=== PATIENT | male | born 1990 | race Caucasian/White ===

== ENCOUNTER 2018-02-01 20:44 | Emergency (ER) | payer SELFPAY ==
[2018-02-01 20:46] VITALS: BP 125/111; PULSE 91; RESP 22; TEMP 36.6; O2SAT 100; BMI 18.1
[2018-02-01 21:22] LABS: Absolute Lymphocyte Count 2.68 X10^3/ul (0.83-4.51); Basophil# 0.05 X10^3/uL; Basophil% 0.6 % (0-1); Eosinophil# 0.03 X10^3/uL; Eosinophils% 0.4 % (0-5); Hematocrit 41.2 % (40-54); Hemoglobin 14.3 g/dl (13.0-16.5); Lymphocyte # 2.68 X10^3/ul (4.0); Mean Corp Hgb Conc 34.7 g/gl (32-36); Mean Corpuscular Hgb 30.4 pg (27.0-32.0); Mean Corpuscular Volume 87.5 fL (80-94); Mean Platelet Vol. 10.3 fl (6.2-12.0); Monocyte# 0.62 X10^3/uL; Monocyte% 7.4 % (0-10); Neutrophil # 4.98 X10^3/uL (2.7-7.7); Neutrophil % 59.4 % (47-70); Platelet Count 281 K/mm3 (150-450); RBC Distribution Width CV 12.8 % (11.6-14.6); RBC Distribution Width SD 41.3 fl (35.1-43.9); Red Blood Count 4.71 M/mm3 (4.6-6.2); White Blood Count 8.4 K/mm3 (4.4-11.0)
[2018-02-01 21:24] LABS: POSITIVE COUNT NO; POSITIVE DIFFERENTIAL NO; POSITIVE MORPHOLOGY NO
[2018-02-01 21:30] LABS: Anion Gap 8 (5-15); BUN 13 mg/dL (7-18); BUN/Creat Ratio 11.6 RATIO (10-20); Calcium,Total 9.4 mg/dL (8.5-10.1); Chloride 106 mmol/L (98-107); Creatinine, Serum 1.12 mg/dL (0.70-1.30); EST Glomerular Filtration Rate 84 mL/min (>60); Est Glom Filt Rate - Afr Amer 101 mL/min (>60); Estimated Creatinine Clearance 85.81 ml/min; Glucose 94 mg/dL (74-106); Potassium 3.8 mmol/L (3.5-5.1); Sodium Level 142 mmol/L (136-145)
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
[2018-02-01 21:37] LABS: Alcohol, Blood (Medical)-Serum < 3.0 mg/dL
[2018-02-01 21:37] LABS: Amphetamine Urine VISTA POSITIVE (<1000 ng/mL); Barbiturate Urine VISTA NEGATIVE (< 200 ng/mL); Benzodiazepine Urine VISTA NEGATIVE (< 200 ng/mL); Cocaine Urine VISTA POSITIVE (< 300 ng/mL); Ecstacy Urine VISTA POSITIVE (< 500 ng/mL); Methadone Urine VISTA NEGATIVE (< 300 ng/mL); PCP Urine VISTA NEGATIVE (< 25 ng/mL); THC Urine VISTA POSITIVE (< 50 ng/mL); Vista UDS pH Range 5
[2018-02-01 21:44] VITALS: RESP 16
[2018-02-01 22:00] VITALS: RESP 16
[2018-02-01 23:00] VITALS: BP 111/70; PULSE 76; RESP 16; O2SAT 96
[2018-02-02] VITALS (14 sets, daily range): BP systolic 96–117; BP diastolic 49–73; PULSE 50–64; RESP 14–20; O2SAT 97–99
--- NOTE | 2018-02-02 05:18 | EKG12_ITS ---
Test Reason : MENTAL HEALTH Blood Pressure : / mmHG Vent. Rate : 057 BPM Atrial Rate : 057 BPM P-R Int : 124 ms QRS Dur : 092 ms QT Int : 432 ms P-R-T Axes : 043 074 075 degrees QTc Int : 420 ms Sinus bradycardia Otherwise normal ECG Confirmed by FLAQUITA MARIE, SHEILA ([id number]), book or script editor BEATRIZ BRAVO ([id number]) on 02/04/2018 3:07:17 PM Referred By: NEY Confirmed By:SHEILA SAMS MD
[2018-02-02 05:40] LABS: AST(SGOT) 29 U/L (15-37); Alanine Aminotransfer ALT/SGPT 20 U/L (16-61); Albumin, Serum 4.1 g/dL (3.2-5.0); Alkaline Phosphatase 90 U/L (45-117); Bilirubin, Direct 0.24 mg/dL (0.00-0.30); Globulin 3.3 g/dL (2.2-4.2); Lipase 116 U/L (73-393); Protein, Total 7.4 g/dL (6.4-8.2)
--- NOTE | 2018-02-02 13:38 | ED.RN ---
JATINDER FROM [facility] CALLED WITH UNIT C2 FOR PT TO BE TRANSFERRED. CALL REPORT TO [phone].
== END 2018-02-02 14:19 ==
PROVIDERS: Emergency Medicine; Emergency Provider Emergency Medicine
DX: R45.851 Suicidal ideations (principal); F41.9 Anxiety disorder, unspecified; F32.9 Major depressive disorder, single episode, unspecified; Z59.0 Homelessness; Z91.14 Patient's other noncompliance with medication regimen; Z72.0 Tobacco use
CPT/HCPCS: 36415; 80048; 80076; 80307; 80320; 83690; 85025; 93005; 99285; G0480

== ENCOUNTER 2018-02-24 22:41 | Emergency (ER) | payer SELFPAY ==
[2018-02-24 22:43] VITALS: BP 126/79; PULSE 85; RESP 16; TEMP 36.8; O2SAT 97; BMI 29.6
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
[2018-02-24 23:46] VITALS: RESP 16
== END 2018-02-24 23:58 | disposition home or self-care (01) ==
LOC: ED 23:16
PROVIDERS: Emergency Provider Emergency Medicine
DX: S20.212A Contusion of left front wall of thorax, initial encounter (principal); Y04.2XXA Assault by strike against or bumped into by another person, initial encounter; Y93.9 Activity, unspecified; Y92.9 Unspecified place or not applicable; Y99.9 Unspecified external cause status; Z72.0 Tobacco use; F32.9 Major depressive disorder, single episode, unspecified
CPT/HCPCS: 71101; 99284

== ENCOUNTER 2018-05-05 13:35 | Emergency (ER) | payer MEDICAID, SELFPAY ==
--- NOTE | 2018-05-05 14:00 | DT_ITS ---
This patient was seen during an EMR downtime May 02, 2018 - May 09, 2018. This patient may have a combination of paper and electronic documentation or all paper documentation. All documentation is viewable within the e-chart portion of [facility] for each patient visit.
--- NOTE | 2018-05-05 14:45 | RAD_ITS ---
STUDY: X-RAY - RIGHT HAND REASON FOR EXAM: Fifth metacarpal pain, injury. TECHNIQUE: 3 view(s) of the hand. COMPARISON: Radiographs 11/15/2015. FINDINGS: Normal radiocarpal articulation. Normal distal radioulnar joint. Normal visualized carpal bones. Normal carpal articulations Normal carpometacarpal articulation of the thumb. Normal second through fifth carpometacarpal joints. There is chronic healed fracture deformity of the fifth metacarpal neck, unchanged since the prior study. Normal metacarpophalangeal joint of the thumb. Normal interphalangeal joint of the thumb. Normal proximal and distal phalanges of the thumb. Normal metacarpophalangeal joints of the second through fifth fingers. Normal proximal and distal interphalangeal joints of the second through fifth fingers. Normal phalanges of the second through fifth fingers. The soft tissue structures are unremarkable. RAD/Hand Min 3 Views IMPRESSION: Chronic healed fracture deformity of the fifth metacarpal neck. Otherwise, unremarkable x-ray examination of the right hand. Electronically Signed: Flaco Dawson MD at 12:02 EDT Tel , Service support ,
== END 2018-05-05 15:43 | disposition home or self-care (01) ==
LOC: ED 05-06 09:31
PROVIDERS: Emergency Provider Emergency Medicine
DX: S69.91XA Unspecified injury of right wrist, hand and finger(s), initial encounter (principal); W23.0XXA Caught, crushed, jammed, or pinched between moving objects, initial encounter; Y93.9 Activity, unspecified; Y92.9 Unspecified place or not applicable; F32.9 Major depressive disorder, single episode, unspecified; F41.9 Anxiety disorder, unspecified; Z79.899 Other long term (current) drug therapy
CPT/HCPCS: 73130; 99283

== ENCOUNTER 2018-06-01 11:53 | Inpatient (IN) | payer MEDICAID, SELFPAY ==
[2018-06-01] VITALS (17 sets, daily range): BP systolic 90–137; BP diastolic 53–107; PULSE 55–105; RESP 12–28; TEMP 36.5–36.9; O2SAT 96–100; BMI 17.6; BMI 18.3; BMI 18.4
[2018-06-01] MEDS: LORazepam 2 MG/ML Syringe 1 MG IV (12:22)
[2018-06-01 12:31] LABS: Anion Gap 8 (5-15); BUN 20 mg/dL (7-18); BUN/Creat Ratio 17.2 RATIO (10-20); Calcium,Total 8.5 mg/dL (8.5-10.1); Chloride 108 mmol/L (98-107); Creatinine, Serum 1.16 mg/dL (0.70-1.30); EST Glomerular Filtration Rate 80 mL/min (>60); Est Glom Filt Rate - Afr Amer 97 mL/min (>60); Estimated Creatinine Clearance 79.78 ml/min; Glucose 83 mg/dL (74-106); Potassium 3.9 mmol/L (3.5-5.1); Sodium Level 140 mmol/L (136-145)
[2018-06-01 12:32] LABS: Absolute Lymphocyte Count 1.22 X10^3/ul (0.83-4.51); Absolute Neutrophil Count 9.7 X10^3/uL (2.0-7.7); Basophil# 0.03 X10^3/uL; Basophil% 0.2 % (0-1); Differential Indicated SCAN CRITERIA MET; Eosinophil# 0.01 X10^3/uL; Eosinophils% 0.1 % (0-5); Hematocrit 38.9 % (40-54); Hemoglobin 13.3 g/dl (13.0-16.5); Lymphocyte # 1.22 X10^3/ul (4.0); Lymphocyte % 9.8 % (19-41); Mean Corp Hgb Conc 34.2 g/gl (32-36); Mean Corpuscular Hgb 29.8 pg (27.0-32.0); Mean Corpuscular Volume 87.2 fL (80-94); Mean Platelet Vol. 9.6 fl (6.2-12.0); Monocyte# 1.54 X10^3/uL; Monocyte% 12.3 % (0-10); Neutrophil # 9.67 X10^3/uL (2.7-7.7); Neutrophil % 77.3 % (47-70); POSITIVE COUNT NO; POSITIVE DIFFERENTIAL YES; POSITIVE MORPHOLOGY NO; Platelet Count 267 K/mm3 (150-450); RBC Distribution Width CV 12.6 % (11.6-14.6); RBC Distribution Width SD 40.4 fl (35.1-43.9); Red Blood Count 4.46 M/mm3 (4.6-6.2); White Blood Count 12.5 K/mm3 (4.4-11.0)
[2018-06-01 12:38] LABS: Alcohol, Blood (Medical)-Serum < 3.0 mg/dL
[2018-06-01 13:14] LABS: Amphetamine Urine VISTA POSITIVE (<1000 ng/mL); Barbiturate Urine VISTA NEGATIVE (< 200 ng/mL); Benzodiazepine Urine VISTA NEGATIVE (< 200 ng/mL); Cocaine Urine VISTA NEGATIVE (< 300 ng/mL); Ecstacy Urine VISTA POSITIVE (< 500 ng/mL); Methadone Urine VISTA NEGATIVE (< 300 ng/mL); PCP Urine VISTA NEGATIVE (< 25 ng/mL); THC Urine VISTA POSITIVE (< 50 ng/mL); Vista UDS pH Range 5
--- NOTE | 2018-06-01 13:25 | RAD_ITS ---
STUDY: X-RAY CHEST REASON FOR EXAM: Male, 28 years old. Exhaustion. Chest pain. TECHNIQUE: Single AP portable view of the chest. COMPARISON: 02/24/2018. FINDINGS: The lungs are clear and expanded. There is no demonstrated pleural abnormality. Normal size heart. Normal mediastinum and denis. Normal visualized pulmonary arteries. Normal visualized aortic arch and descending thoracic aorta. Normal visualized thoracic spine. Normal visualized ribs, clavicles, and shoulders. There is no demonstrated abnormality of the visualized soft tissue structures of the upper abdomen. RAD/Chest 1 View (Portable) IMPRESSION: Normal x-ray examination of the chest. Electronically Signed: Yeyo Montana MD at 14:33 EDT , Service support ,
--- NOTE | 2018-06-01 14:49 | ED.DCSUM_ITS ---
- ER Visit Summary Date of Service: 06/01/18 Chief Complaint: [Hand contraction, fatigue, rib pain] History of Present Illness: The patient is a 28 M [presents to the emergency department via EMS. Patient apparently was walking from [place] to [facility]. Patient had stopped hydrated by drinking some water and then apparently developed numbness and tingling started in his legs and went through his entire body. Patient had a hard time standing up very late in the grass. Patient was feeling dehydrated. Patient states she has not been drinking alcohol today but did drink last night. Patient denies any illicit drug use currently other than marijuana occasionally. Patient states he used to use methamphetamines but has not used in over 6 months. Patient complains of right hand being painful and contracted in flexion. Patient denies recent illness. Patient denies fall or head injury. Patient states that he does have an injury to his left ribs and he complains of pain to that left chest.] Physical Examination: [HEENT-PERRLA, EOMI. Cranial nerves II through XII grossly intact. TMs clear. Mucous membranes moist. No adenopathy. Patient has some abnormal movements of his mouth with lip and tongue smacking. Cardiovascular-regular rate and rhythm without murmur or ectopy Lungs-clear to auscultation, chest wall stable without crepitus or subcu emphysema Abdomen-normoactive bowel sounds, soft, nontender, no rebound or rigidity, no peritoneal signs. Extremities-intact ?4, normal range of motion, normal pulses, atraumatic]. Right hand is held in flexion and his digits are held flexed. No external evidence of trauma. Neurovascularly intact. Test Results: [CBC with differential obtained showed a white blood cell count of 12.5, hemoglobin 13, hematocrit 39, platelets 267. Chemistries unremarkable. BUN was 20 and creatinine was 1.16. Alcohol was less than 3. Toxicology screen was positive for MDMA, amphetamines, and marijuana. Chest x- ray obtained showed nothing acute.] Emergency Department Course and Treatment: [Given patient history of anxiety initially patient was given a milligram of Ativan which did make patient somnolent. Patient still arouses but more difficult to arouse. Patient continues to complain of discomfort in his hand. Patient's speech still at times difficult to understand and he continues the lipsmacking and have abnormal movements.] Treatment Plan: [At this point patient will be admitted for observation I suspect likely etiology of his mental status change and abnormal movements likely illicit drug use.] Disposition: [Admit Impression: [Illicit drug use Mental status change Anxiety by history] This note was generated with [employer] dictation software. It may contain incorrect words, spelling, and punctuation that were not noted in review of the chart prior to signing ED Disposition - Plan for ED Patient: Chief Complaint: Fatigue Referrals: Care Physician,No Primary [Primary Care Provider] -
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
--- NOTE | 2018-06-01 16:20 | NURSING ---
In ICU 8 per cart from ER, SERVICE DESK LEAD in attendance
--- NOTE | 2018-06-01 16:25 | EKG12_ITS ---
Test Reason : ADMISSION Blood Pressure : / mmHG Vent. Rate : 059 BPM Atrial Rate : 059 BPM P-R Int : 134 ms QRS Dur : 092 ms QT Int : 424 ms P-R-T Axes : 052 077 075 degrees QTc Int : 419 ms Sinus bradycardia Otherwise normal ECG When compared with ECG of 02-FEB-2018 05:18, No significant change was found Confirmed by FLAQUITA MARIE, SHEILA ([id number]), editorial cartoonist BEATRIZ BRAVO ([id number]) on 06/07/2018 1:10:24 PM Referred By: PINA Confirmed By:SHEILA SAMS MD
--- NOTE | 2018-06-01 16:25 | CT_ITS ---
STUDY: CT BRAIN WITHOUT CONTRAST REASON FOR EXAM: Male, 28 years old. Altered mental status. Drug abuse. RADIATION DOSAGE (If Supplied By Facility): CTDIvol = ( 44.99 ) mGy, DLP = ( 846.73 ) mGycm TECHNIQUE: Transaxial CT imaging of the brain was performed without administration of intravenous contrast material. Individualized dose optimization techniques were used for this CT. COMPARISON: 11/15/2015. FINDINGS: Normal soft tissue structures. Normal calvarium. Normal size ventricles and extra-axial spaces for the patient's age. Normal white matter tracts of the cerebral hemispheres. Normal basal ganglia and thalami. Normal brainstem. Normal cerebellum. There is no intracranial hemorrhage. There are no findings of an acute ischemic infarction. Normal visualized paranasal sinuses. CT/Brain/Head without Contrast IMPRESSION: Normal unenhanced CT scan of the brain. Electronically Signed: Yeyo Montana MD at 18:52 EDT , Service support ,
[2018-06-01 17:22] LABS: AST(SGOT) 28 U/L (15-37); Alanine Aminotransfer ALT/SGPT 20 U/L (16-61); Albumin, Serum 3.9 g/dL (3.2-5.0); Alkaline Phosphatase 85 U/L (45-117); Bilirubin, Direct 0.33 mg/dL (0.00-0.30); Protein, Total 6.9 g/dL (6.4-8.2)
[2018-06-01 17:28] LABS: CPK Total, Creatine Kinase 255 U/L (39-308)
[2018-06-01] MEDS: Dextrose 5%/0.9% NaCl 1,000 ML 100 ML IV (17:40)
[2018-06-01 22:07] LABS: M R Staph aureus DNA By PCR Negative (Negative)
[2018-06-01 22:08] LABS: Probe Check PASS; Specimen Processing Control PASS
[2018-06-02] VITALS (18 sets, daily range): BP systolic 84–104; BP diastolic 49–74; PULSE 50–64; RESP 14–20; TEMP 36.5–37.1; O2SAT 99–100
[2018-06-02] MEDS: Dextrose 5%/0.9% NaCl 1,000 ML 100 ML IV ×3 (03:17→23:41)
[2018-06-02 04:19] LABS: Absolute Lymphocyte Count 1.77 X10^3/ul (0.83-4.51); Absolute Neutrophil Count 3.4 X10^3/uL (2.0-7.7); Basophil# 0.04 X10^3/uL; Basophil% 0.7 % (0-1); Eosinophil# 0.09 X10^3/uL; Eosinophils% 1.5 % (0-5); Hematocrit 37.8 % (40-54); Hemoglobin 12.9 g/dl (13.0-16.5); Lymphocyte # 1.77 X10^3/ul (4.0); Lymphocyte % 28.8 % (19-41); Mean Corp Hgb Conc 34.1 g/gl (32-36); Mean Corpuscular Hgb 30.4 pg (27.0-32.0); Mean Corpuscular Volume 88.9 fL (80-94); Mean Platelet Vol. 9.9 fl (6.2-12.0); Monocyte# 0.88 X10^3/uL; Monocyte% 14.3 % (0-10); Neutrophil # 3.35 X10^3/uL (2.7-7.7); Neutrophil % 54.5 % (47-70); Platelet Count 231 K/mm3 (150-450); RBC Distribution Width CV 12.8 % (11.6-14.6); RBC Distribution Width SD 41.1 fl (35.1-43.9); Red Blood Count 4.25 M/mm3 (4.6-6.2); White Blood Count 6.1 K/mm3 (4.4-11.0)
[2018-06-02 04:21] LABS: POSITIVE COUNT NO; POSITIVE DIFFERENTIAL NO; POSITIVE MORPHOLOGY NO
[2018-06-02 04:35] LABS: Anion Gap 8 (5-15); BUN 14 mg/dL (7-18); Calcium,Total 8.1 mg/dL (8.5-10.1); Chloride 111 mmol/L (98-107); Creatinine, Serum 0.74 mg/dL (0.70-1.30); EST Glomerular Filtration Rate 136 mL/min (>60); Est Glom Filt Rate - Afr Amer 164 mL/min (>60); Estimated Creatinine Clearance 130.65 ml/min; Glucose 103 mg/dL (74-106); Potassium 3.9 mmol/L (3.5-5.1); Sodium Level 143 mmol/L (136-145)
[2018-06-02] MEDS: Enoxaparin 40 MG/0.4 ML Syringe SC (05:04)
[2018-06-02] MEDS: 0.9% NaCl Peripheral Flush Adult/Peds IV (05:04)
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
--- NOTE | 2018-06-02 10:12 | CASEMGMT ---
Addendum entered by Irene Alegria 06/02/18 15:06: SW spoke w/RN in ICU, pt has been sleeping intermittently throughout the day, is sleeping at present. SW asked RN to call this SW should pt wake up enough to have a conversation w/this SW. Otherwise, SW will follow up w/this pt tomorrow. JEANNINE Farley, JACINDA Original Note: SW participated in ICU rounds this morning. Pt sleeping and not waking easily this morning. SW asked RN to call this SW if pt wakes more during the day, and SW will return to see pt. SW also left a message for Sarita in the financial dept letting her know pt is too sleepy to speak w/her just yet, and SW will let her know should pt be more awake this afternoon. SW will continue to follow. JEANNINE Farley, JACINDA
[2018-06-03 03:19] VITALS: BP 97/57; PULSE 52; RESP 18; TEMP 36.8; O2SAT 99
[2018-06-03] MEDS: Enoxaparin 40 MG/0.4 ML Syringe SC (05:38)
[2018-06-03 07:42] LABS: Absolute Lymphocyte Count 1.97 X10^3/ul (0.83-4.51); Absolute Neutrophil Count 3.1 X10^3/uL (2.0-7.7); Basophil# 0.04 X10^3/uL; Basophil% 0.7 % (0-1); Eosinophil# 0.14 X10^3/uL; Eosinophils% 2.3 % (0-5); Hematocrit 37.5 % (40-54); Lymphocyte # 1.97 X10^3/ul (4.0); Lymphocyte % 32.7 % (19-41); Mean Corp Hgb Conc 34.7 g/gl (32-36); Mean Corpuscular Hgb 30.5 pg (27.0-32.0); Mean Platelet Vol. 10.1 fl (6.2-12.0); Monocyte# 0.73 X10^3/uL; Monocyte% 12.1 % (0-10); Neutrophil # 3.14 X10^3/uL (2.7-7.7); POSITIVE COUNT NO; POSITIVE DIFFERENTIAL NO; POSITIVE MORPHOLOGY NO; Platelet Count 214 K/mm3 (150-450); RBC Distribution Width CV 12.5 % (11.6-14.6); RBC Distribution Width SD 39.8 fl (35.1-43.9); Red Blood Count 4.26 M/mm3 (4.6-6.2)
[2018-06-03 07:58] LABS: Anion Gap 6 (5-15); BUN 8 mg/dL (7-18); BUN/Creat Ratio 11.9 RATIO (10-20); Calcium,Total 7.9 mg/dL (8.5-10.1); Chloride 112 mmol/L (98-107); Creatinine, Serum 0.67 mg/dL (0.70-1.30); EST Glomerular Filtration Rate 151 mL/min (>60); Est Glom Filt Rate - Afr Amer 182 mL/min (>60); Estimated Creatinine Clearance 148.98 ml/min; Glucose 100 mg/dL (74-106); Potassium 3.7 mmol/L (3.5-5.1); Sodium Level 142 mmol/L (136-145)
[2018-06-03 09:50] VITALS: BP 106/64; PULSE 58; RESP 16; TEMP 36.4; O2SAT 97
[2018-06-03] MEDS: Dextrose 5%/0.9% NaCl 1,000 ML 100 ML IV (09:50)
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
--- NOTE | 2018-06-03 10:24 | PCM.DC ---
- Discharge Diagnoses Current Active Problems: Current Active and Chronic Problems Multiple drug overdose (Acute) Acute encephalopathy (Acute) Anxiety (Chronic) Depression (Chronic) You will use the following diet at home:: No restrictions Your food should be the consistency of: Regular Your liquids should be the consistency of: Regular/Thin Discharge Activity: Return to Normal Activity May resume sexual activity in: No Restrictions Weight Bearing Status: Weight bearing as tolerated Instructions: Signs of Marijuana Addiction, Addiction: Getting Help, Recovering from Addiction Additional Instructions: Please follow up with your psychiatrist; and please access resources for chemical dependency (caseworker to give material for resources available.) Allergies/Adverse Reactions: Allergies No Known Allergies Allergy (Verified 06/01/18 11:54) Primary Care Physician: Care Physician,No Primary [Primary Care Provider] - Sara Gallegos MD [STAFF PHYSICIAN] - Please follow up with your Primary Care Physician in: two weeks Test Results: Test results from this visit will be discussed in further detail at your follow-up appointment, if applicable. Proposed Discharge Date: 06/03/18
--- NOTE | 2018-06-03 10:29 | DCINST_ITS ---
- Discharge Diagnoses Current Active Problems: Current Active and Chronic Problems Multiple drug overdose (Acute) Acute encephalopathy (Acute) Anxiety (Chronic) Depression (Chronic) You will use the following diet at home:: No restrictions Your food should be the consistency of: Regular Your liquids should be the consistency of: Regular/Thin Discharge Activity: Return to Normal Activity May resume sexual activity in: No Restrictions Weight Bearing Status: Weight bearing as tolerated Instructions: Signs of Marijuana Addiction, Addiction: Getting Help, Recovering from Addiction Additional Instructions: Please follow up with your psychiatrist; and please access resources for chemical dependency (farm[employer] to give material for resources available.) Allergies/Adverse Reactions: Allergies No Known Allergies Allergy (Verified 06/01/18 11:54) Primary Care Physician: Care Physician,No Primary [Primary Care Provider] - Sara Gallegos MD [STAFF PHYSICIAN] - Please follow up with your Primary Care Physician in: two weeks Test Results: Test results from this visit will be discussed in further detail at your follow- up appointment, if applicable. Proposed Discharge Date: 06/03/18
--- NOTE | 2018-06-03 10:29 | PCM.DC.SUM ---
Discharge Date and Diagnosis Date of Admission: 06/01/18 Date of Discharge: 06/03/18 - Primary Discharge Diagnosis Active and Suspected Problems Multiple drug overdose (Acute) Acute encephalopathy (Acute) - Secondary Discharge Diagnosis Chronic Problems Anxiety (Chronic) Depression (Chronic) Hospital Course and Treatment Imaging Results: Diagnostic Data Chest X-Ray 06/01/18 13:25 IMPRESSION: Normal x-ray examination of the chest. Electronically Signed: Yeyo Montana MD at 14:33 EDT , Service support , Brain CT 06/01/18 16:25 IMPRESSION: Normal unenhanced CT scan of the brain. Electronically Signed: Yeyo Montana MD at 18:52 EDT , Service support , Laboratory Tests 06/01/18 06/01/18 06/01/18 12:07 12:07 12:07 WBC 12.5 H RBC 4.46 L Hgb 13.3 Hct 38.9 L MCV 87.2 MCH 29.8 MCHC 34.2 RDW 12.6 RDW Differential 40.4 Plt Count 267 MPV 9.6 Immature Gran % (Auto) 0.300 Neut % (Auto) 77.3 H Lymph % (Auto) 9.8 L [place] % (Auto) 12.3 H Eos % (Auto) 0.1 Baso % (Auto) 0.2 Absolute Neuts (auto) 9.7 H Absolute Lymphs (auto) 1.22 Total Counted Not Reportable Sodium 140 Potassium 3.9 Chloride 108 H Carbon Dioxide 24.0 Anion Gap 8 BUN 20 H Creatinine 1.16 Estim Creat Clear Calc 79.78 Est GFR (MDRD) Af Amer 97 Est GFR (MDRD) Non-Af 80 BUN/Creatinine Ratio 17.2 Glucose 83 Calcium 8.5 Total Bilirubin Direct Bilirubin AST ALT Alkaline Phosphatase Total Creatine Kinase Total Protein Albumin Globulin Urine Opiates Screen Urine Methadone Screen Ur Barbiturates Screen Ur Phencyclidine Scrn Ur Amphetamines Screen U Methamphetamin-MDMA U Benzodiazepines Scrn Urine Cocaine Screen U Cannabinoids Screen Ur Drug Screen Comment Ethyl Alcohol < 3.0 MRSA (PCR) 06/01/18 06/01/18 06/01/18 12:07 12:55 16:25 WBC RBC Hgb Hct MCV MCH MCHC RDW RDW Differential Plt Count MPV Immature Gran % (Auto) Neut % (Auto) Lymph % (Auto) [place] % (Auto) Eos % (Auto) Baso % (Auto) Absolute Neuts (auto) Absolute Lymphs (auto) Total Counted Sodium Potassium Chloride Carbon Dioxide Anion Gap BUN Creatinine Estim Creat Clear Calc Est GFR (MDRD) Af Amer Est GFR (MDRD) Non-Af BUN/Creatinine Ratio Glucose Calcium Total Bilirubin 2.60 H Direct Bilirubin 0.33 H AST 28 ALT 20 Alkaline Phosphatase 85 Total Creatine Kinase 255 Total Protein 6.9 Albumin 3.9 Globulin 3.0 Urine Opiates Screen NEGATIVE Urine Methadone Screen NEGATIVE Ur Barbiturates Screen NEGATIVE Ur Phencyclidine Scrn NEGATIVE Ur Amphetamines Screen POSITIVE H U Methamphetamin-MDMA POSITIVE H U Benzodiazepines Scrn NEGATIVE Urine Cocaine Screen NEGATIVE U Cannabinoids Screen POSITIVE H Ur Drug Screen Comment Ethyl Alcohol MRSA (PCR) 06/01/18 06/02/18 06/02/18 20:00 04:05 04:05 WBC 6.1 RBC 4.25 L Hgb 12.9 L Hct 37.8 L MCV 88.9 MCH 30.4 MCHC 34.1 RDW 12.8 RDW Differential 41.1 Plt Count 231 MPV 9.9 Immature Gran % (Auto) 0.200 Neut % (Auto) 54.5 Lymph % (Auto) 28.8 [place] % (Auto) 14.3 H Eos % (Auto) 1.5 Baso % (Auto) 0.7 Absolute Neuts (auto) 3.4 Absolute Lymphs (auto) 1.77 Total Counted Not Reportable Sodium 143 Potassium 3.9 Chloride 111 H Carbon Dioxide 24.0 Anion Gap 8 BUN 14 Creatinine 0.74 Estim Creat Clear Calc 130.65 Est GFR (MDRD) Af Amer 164 Est GFR (MDRD) Non-Af 136 BUN/Creatinine Ratio 19.0 Glucose 103 Calcium 8.1 L Total Bilirubin Direct Bilirubin AST ALT Alkaline Phosphatase Total Creatine Kinase Total Protein Albumin Globulin Urine Opiates Screen Urine Methadone Screen Ur Barbiturates Screen Ur Phencyclidine Scrn Ur Amphetamines Screen U Methamphetamin-MDMA U Benzodiazepines Scrn Urine Cocaine Screen U Cannabinoids Screen Ur Drug Screen Comment Ethyl Alcohol MRSA (PCR) Negative 06/03/18 06/03/18 07:20 07:20 WBC 6.0 RBC 4.26 L Hgb 13.0 Hct 37.5 L MCV 88.0 MCH 30.5 MCHC 34.7 RDW 12.5 RDW Differential 39.8 Plt Count 214 MPV 10.1 Immature Gran % (Auto) 0.200 Neut % (Auto) 52.0 Lymph % (Auto) 32.7 [place] % (Auto) 12.1 H Eos % (Auto) 2.3 Baso % (Auto) 0.7 Absolute Neuts (auto) 3.1 Absolute Lymphs (auto) 1.97 Total Counted Not Reportable Sodium 142 Potassium 3.7 Chloride 112 H Carbon Dioxide 24.0 Anion Gap 6 BUN 8 Creatinine 0.67 L Estim Creat Clear Calc 148.98 Est GFR (MDRD) Af Amer 182 Est GFR (MDRD) Non-Af 151 BUN/Creatinine Ratio 11.9 Glucose 100 Calcium 7.9 L Total Bilirubin Direct Bilirubin AST ALT Alkaline Phosphatase Total Creatine Kinase Total Protein Albumin Globulin Urine Opiates Screen Urine Methadone Screen Ur Barbiturates Screen Ur Phencyclidine Scrn Ur Amphetamines Screen U Methamphetamin-MDMA U Benzodiazepines Scrn Urine Cocaine Screen U Cannabinoids Screen Ur Drug Screen Comment Ethyl Alcohol MRSA (PCR) Operations: None Procedures: None Summary of Care Provided: Patient is a 28-year-old male with a history of chemical dependency was admitted via the ED after he was brought in by ambulance. According to patient and he had been walking for a long time and said he had not been drinking enough water and sitting to became dehydrated with assisted numbness and tingling in his legs and subsequently through his entire body. He was found very dehydrated and denied use of any other recreational drugs recently apart from marijuana. He had a history of meth use but said he had been clean for about 6 months. Urine screen was positive for amphetamines, methamphetamines and cannabinoids and blood alcohol level was less than 3. He was admitted and managed for acute encephalopathy likely metabolic and multiple drug overdose. He was admitted to the ICU and hydrated with IV fluids. He remained stable and was transferred out of the ICU on 06/02/2018. Home medications reviewed and reconciled. Patient was discharged home on 06/03/2018 to follow-up with primary care doctor and a psychiatrist. He was also given materials for community resources available for chemical dependency. Discharge Activity: Return to Normal Activity May resume sexual activity in: No Restrictions Weight Bearing Status: Weight bearing as tolerated Primary Care Physician: Sara Galleogs MD [STAFF PHYSICIAN] - Care Physician,No Primary [Primary Care Provider] - Please follow up with your Primary Care Physician in: two weeks Patient Instructions: Signs of Marijuana Addiction, Addiction: Getting Help, Recovering from Addiction Disposition: Home Minutes spent on discharge:: 35 Patient Condition:: Good Medical Necessity - Tobacco Use Smoking Status: Current every day smoker Meaningful Use Info Meaningful Use Diagnoses (Choose all that apply): None applicable Code Visit Inpatient E&M: 79959 Disch Hosp
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
== END 2018-06-03 11:16 | disposition home or self-care (01) | DRG 449 ==
LOC: ED 13:00 → MS3 15:13 → ICU 15:43 → MS3 06-02 17:16
PROVIDERS: Admitting Provider Hospitalist; Emergency Provider Emergency Medicine; Visit Provider Student in an Organized Health Care Education/Training Program
DX: T43.621A Poisoning by amphetamines, accidental (unintentional), initial encounter (principal); G92 Toxic encephalopathy; E86.0 Dehydration; T40.7X1A Poisoning by cannabis (derivatives), accidental (unintentional), initial encounter; F41.9 Anxiety disorder, unspecified; F32.9 Major depressive disorder, single episode, unspecified
CPT/HCPCS: 36415; 70450; 71045; 80048; 80076; 80307; 80320; 82550; 85025; 87641; 93005; 97162; 97530; 99285; 99406; J7030; A4216; G0480; J3490

== ENCOUNTER 2021-04-03 17:18 | Emergency (ER) | payer SELFPAY ==
[2021-04-03 17:19] VITALS: BP 147/89; PULSE 57; RESP 14; TEMP 36.1; O2SAT 99; BMI 19.0
--- NOTE | 2021-04-03 17:23 | RAD_ITS ---
STUDY: X-RAY - LEFT SHOULDER REASON FOR EXAM: Male, 31 years old. INJURY/pain TECHNIQUE: 4 view(s) of the shoulder. COMPARISON: None. FINDINGS: Normal glenohumeral articulation. Normal acromioclavicular joint. Normal acromion. Normal humeral head and visualized proximal humerus. The soft tissue structures are unremarkable. Normal visualized pulmonary apex. RAD/Shoulder min 2 Views IMPRESSION: Normal x-ray examination of the shoulder. Electronically Signed: Kristal Mccain MD at 17:49 EDT , Service support ,
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
[2021-04-03 18:44] VITALS: BP 129/69; PULSE 52; RESP 16; O2SAT 99
[2021-04-03] MEDS: HYDROcodone Bitartrate/Apap 5/325 Tablet PO (18:48)
== END 2021-04-03 18:54 | disposition home or self-care (01) ==
LOC: ED 18:22
PROVIDERS: Emergency Provider Emergency Medicine
DX: S43.402A Unspecified sprain of left shoulder joint, initial encounter (principal); F17.200 Nicotine dependence, unspecified, uncomplicated; Y93.55 Activity, bike riding; V19.9XXA Pedal cyclist (driver) (passenger) injured in unspecified traffic accident, initial encounter
CPT/HCPCS: 73030; 99285

== ENCOUNTER 2022-02-08 18:47 | Emergency (ER) | payer SELFPAY ==
[2022-02-08 18:48] VITALS: BP 151/87; PULSE 67; RESP 14; TEMP 36.8; O2SAT 96; BMI 20.9
--- NOTE | 2022-02-08 19:05 | ED.VIS.LOWEX ---
HPI History of Present Illness Chief Complaint: Lower Extremity Injury Informant: patient Onset/Context/Timing Onset: Weeks (1) Context: Sudden Onset Timing: Continuous Quality of Pain: - (sore) Location: Left great toe Current Severity: Mild Maximum Severity: Moderate Worsened by: Tried to pull nail off and palpation Relieved by: Leaving alone Associated Symptoms Associated Symptoms: Negative for Parasthesia, Weakness and Loss of Funtion Narrative Narrative: Patient states he was skateboarding a week ago and trying a new move and in doing so, the skateboard edge came down right onto his left great toe. Shoe was on at that time, but he sustained nail injury. There was temporary bleeding. Since then he did waiting for the nail to fall off but it has not, he is afraid he is going to catch it on something, so he was trying to pull it off and it was too painful for him to do so he presents wanting this done for him. PFSH PFSH Allergy/AdvReac Type Severity Reaction Status Date / Time No Known Allergies Allergy Verified 02/08/22 18:48 Social History Smoking Status: Current every day smoker tobacco type: cigarettes ROS ROS ED Constitutional Constitutional ED: Denies chills or fever(s) Musculoskeletal Musculoskeletal: Reports extremity pain; Denies neck pain Integumentary Reports wounds; Denies Abrasions or rash Neurologic Neurologic: Denies paresthesias or weakness EXAM Physical Exam Const Vital Signs: 02/08/22 18:48 Temperature 98.2 F Temperature Source Temporal Pulse Rate 67 Respiratory Rate 14 Blood Pressure 151/87 H Blood Pressure Mean 108 Pulse Ox 96 Oxygen Delivery Method Room Air Positive well nourished and well developed General Appearance ED: well developed and NAD Neck full ROM and supple Back/Spine normal ROM and normal to inspection Extremity Extremity Narrative: Tenderness distal phalanx left great toe, where there is a nail injury with incomplete avulsion of the nail from the root and the bed. No deformities. Neuro oriented x3, no focal motor deficits and no sensory deficits noted Sensorium / Orientation: alert Psych mental status grossly normal and thought process normal Skin Skin Narrative: Minor bleeding from the root or beneath the left great toenail. Toenail is intact although mostly avulsed from the root, so nail bed not visible or able to be evaluated until nail was removed see the procedure note. No other wounds. Rashes: no rashes MDM MDM MDM Narrative Medical decision making narrative: X-ray of the toe was obtained shows no fractures on my interpretation, 2 views. Radiology in agreement. Patient verbally consented to have his nail removed after digital block which was performed without complication see the procedure note. On inspection of the nailbed, there does appear to be a small longitudinal laceration that emanates from the nail fold, however it appears to be already starting to heal with clot/granulation tissue, since it is a week old. I do not think placing sutures across this will be of benefit, the edges are staying together and they are on an equal plane. He is advised to follow-up with podiatry for reevaluation, and if he cannot get in within the next couple days, to change the dressing at least once daily. The nail was placed within the nail fold in order to stent it open and increase chances for nail regrowth. Radiography Diagnostic Testing: Clinical Impression(s) from Imaging Studies Toe X-Ray 02/08/22 19:10 IMPRESSION: No acute bony abnormality. at 2036 Reported and signed by: Eren Goodson MD Electronically Signed: Eren Goodson MD at 20:35 EDT Reading Location ID and State: [address] [place] [address] Tel , Service support , Procedures Other Procedures Procedure(s): Left great toe digital block: 8 cc total of plain 1% lidocaine used as a ring block from dorsal approach after prep with isopropyl. Excellent anesthesia obtained, no complications and tolerated well. Removal left great toenail: After digital block, bluntly used the non-sharp edge of scissors to dissect the nail away from what was left of its attachment to the nailbed. This was performed without complication or injury to the nailbed, and the nail was removed in its entirety, and it was confirmed that it had already been completely avulsed from the nail fold/root. The nailbed was inspected, there does appear to be a longitudinal 1 cm partial-thickness laceration but there is already healing tissue within it, and slightly disrupting it caused minor bleeding that was easily controllable with pressure. This was cleansed thoroughly, and I cleaned the removed nail, replacing it within the nail fold with a large amount of bacitracin ointment and followed by a bulky dressing. Patient tolerated well without any pain, no complications. Discharge Plan Triage Chief Complaint: Lower Extremity Injury ED Provider: Trever Quintero Dx/Rx/DC Orders Clinical Impression: Traumatic avulsion of nail plate of toe, Laceration of nail bed of toe Instructions: ED Detached Fingernail or Toenail Primary Care Provider: Care Physician,No Primary Referrals: Chuck Ornelas DPM [STAFF PHYSICIAN] - As soon as possible (call for appt) Care Physician,No Primary [Primary Care Provider] - Activity Restrictions/Additional Instructions: If it takes you more than a couple days to get into see podiatry, change the dressing once daily, trying to leave the nail intact within the nail fold. It is okay to place more antibiotic ointment on top of the nail in/by the fold/cuticle if needed before placing more gauze on it. If needed for pain, ice to affected area on top of dressing, and ibuprofen 600 mg orally up to every 8 hours. Disposition Disposition: Home, Self Care
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
[2022-02-08] MEDS: Lidocaine 1% (20 ml mdv) 20 ML Vial INFILT (19:13)
[2022-02-08 23:43] VITALS: PULSE 66; RESP 18; O2SAT 99
== END 2022-02-08 23:46 | disposition home or self-care (01) ==
PROVIDERS: Emergency Provider Emergency Medicine; Visit Provider Emergency Medicine
DX: S91.212D Laceration without foreign body of left great toe with damage to nail, subsequent encounter (principal); V00.131D Fall from skateboard, subsequent encounter; F17.210 Nicotine dependence, cigarettes, uncomplicated
CPT/HCPCS: 11750; 73660; 99282

== ENCOUNTER 2023-03-17 17:27 | Emergency (ER) | payer MEDICAID, SELFPAY ==
[2023-03-17 17:28] VITALS: BP 134/95; PULSE 77; RESP 18; TEMP 36.6; O2SAT 98; BMI 18.7
[2023-03-17 17:54] LABS: Absolute Lymphocyte Count 1.87 X10^3/uL (0.83-4.51); Absolute Neutrophil Count 4.8 X10^3/uL (2.0-7.7); Basophil# 0.08 X10^3/uL; Basophil% 1.1 % (0-1); Eosinophil# 0.02 X10^3/uL; Eosinophils% 0.3 % (0-5); Hematocrit 41.9 % (40-54); Hemoglobin 14.4 g/dL (13.0-16.5); Lymphocyte # 1.87 X10^3/ul (0.83-4.51); Lymphocyte % 25.7 % (19-41); Mean Corp Hgb Conc 34.4 g/dL (32-36); Mean Corpuscular Hgb 30.4 pg (27.0-32.0); Mean Corpuscular Volume 88.6 fL (80-94); Mean Platelet Vol. 10.5 fl (6.2-12.0); Monocyte# 0.53 X10^3/uL; Monocyte% 7.3 % (0-10); NRBC Flagged by Analyzer 0 % (0-5); Neutrophil # 4.75 X10^3/uL (2.7-7.7); Neutrophil % 65.3 % (47-70); Platelet Count 294 K/mm3 (150-450); RBC Distribution Width CV 12.1 % (11.6-14.6); Red Blood Count 4.73 M/mm3 (4.6-6.2); White Blood Count 7.3 K/mm3 (4.4-11.0)
[2023-03-17 18:09] LABS: Anion Gap 5 (5-15); BUN 16 mg/dL (7-18); BUN/Creat Ratio 15.8 RATIO (10-20); Calcium,Total 9.3 mg/dL (8.5-10.1); Chloride 112 mmol/L (98-107); Creatinine, Serum 1.01 mg/dL (0.70-1.30); EST Glomerular Filtration Rate 91 mL/min (>60); Est Glom Filt Rate - Afr Amer 110 mL/min (>60); Estimated Creatinine Clearance 92.96 ml/min; Glucose 96 mg/dL (74-106); Potassium 3.9 mmol/L (3.5-5.1); Sodium Level 142 mmol/L (136-145)
[2023-03-17 18:26] LABS: Amphetamine Urine VISTA NEGATIVE (<1000 ng/mL); Barbiturate Urine VISTA NEGATIVE (< 200 ng/mL); Benzodiazepine Urine VISTA NEGATIVE (< 200 ng/mL); Cocaine Urine VISTA NEGATIVE (< 300 ng/mL); Ecstacy Urine VISTA NEGATIVE (< 500 ng/mL); Methadone Urine VISTA NEGATIVE (< 300 ng/mL); PCP Urine VISTA NEGATIVE (< 25 ng/mL); THC Urine VISTA POSITIVE (< 50 ng/mL); Vista UDS pH Range 5
[2023-03-17 20:00] VITALS: BP 123/76; PULSE 67; RESP 18; TEMP 37; O2SAT 96
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
--- NOTE | 2023-03-17 20:42 | RAD_ITS ---
STUDY: X-RAY - LEFT HAND REASON FOR EXAM: Male, 33 years old. In the fourth digit. TECHNIQUE: 3 view(s) of the hand. COMPARISON: None. FINDINGS: Normal radiocarpal articulation. Normal distal radioulnar joint. Normal visualized carpal bones. Normal carpal articulations Normal carpometacarpal articulation of the thumb. Normal second through fifth carpometacarpal joints. Normal metacarpi. Normal metacarpophalangeal joint of the thumb. Normal interphalangeal joint of the thumb. Normal proximal and distal phalanges of the thumb. Normal metacarpophalangeal joints of the second through fifth fingers. Normal proximal and distal interphalangeal joints of the second through fifth fingers. Normal phalanges of the second through fifth fingers. The soft tissue structures are unremarkable. RAD/Hand Min 3 Views IMPRESSION: No acute fracture or dislocation of the left hand. Electronically Signed: Narayan Sung DO at 21:02 EDT ,
[2023-03-17] MEDS: Acetaminophen 500 MG Tablet 1000 MG PO (20:50)
--- NOTE | 2023-03-17 21:50 | CM.ED ---
Social Work Met with patient and updated to plan for placement. Patient tearful about this decision and voiced worry about losing his job. Patient reports has 3 un-excused absences in the 6 months of employment at [employer]. This chart writer offered to call employer on 03.18.23, and write a letter if needed to notify of hospital visit (not giving details of why). Patient voiced clearly this was okay (PARTS FABRICATOR Natalee Norton also present during this conversation, and [facility] Sitter). Patient with flat affect, downcast eyes, sad. Checked with physician and next alcohol level to be drawn at 2200. Crisis was called and handoff given to Marry for continuation of placement after 2200 labwork. Spoke with ED press secretary who agrees to send Crisis needed information for placement. Plan: Inpatient mental health once placement is secured. Crisis working on placement. -BETHEL Campa, PARTS FABRICATOR
[2023-03-18] VITALS (7 sets, daily range): BP systolic 116–134; BP diastolic 59–89; PULSE 59–79; RESP 14–18; TEMP 36.4; O2SAT 99
--- NOTE | 2023-03-18 01:15 | ED.RN ---
crisis called and patient is pending at [facility]
--- NOTE | 2023-03-18 02:35 | ED.RN ---
[facility] called asking additional information about patient. they are not able to verify insurance at this time. once insurance is verified they will call back with accepting if they still have beds
--- NOTE | 2023-03-18 14:39 | CM.ED ---
Social Work Called [facility]isabet [facility]uns[facility] ([phone]), where patient is employed. Spoke with certified teacher assistant Jorge Lawton that patient will not be at work on Wednesday due to hospitalization. No details of reason for visit, or that patient was transferred were given. Jorge reports patient's job is secure and will not be fired. Jorge stated this call was sufficient and no need for any written letter. Called patient's fiance Inga ([phone]). Updated Inga to call with the employer. Inga reports will pass this along to patient and verbalized this will help patient to feel better. -BETHEL Campa, MEAL ATTENDANT
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
== END 2023-03-18 10:11 ==
LOC: ED 20:08
PROVIDERS: Emergency Provider Student in an Organized Health Care Education/Training Program; Visit Provider Student in an Organized Health Care Education/Training Program
DX: R45.851 Suicidal ideations (principal); F10.129 Alcohol abuse with intoxication, unspecified; M79.642 Pain in left hand; F17.210 Nicotine dependence, cigarettes, uncomplicated; Y90.6 Blood alcohol level of 120-199 mg/100 ml
CPT/HCPCS: 36415; 73130; 80048; 80307; 82077; 85025; 87811; 99284